=== PATIENT | female | born 1980 | race Caucasian/White ===

== ENCOUNTER 2021-11-23 15:53 | Outpatient (REF) | payer BC, SELFPAY ==
[2021-11-25 12:08] LABS: COVID-19 RT-PCR UVMMC Result Negative (Negative)
== END 2021-11-23 15:54 | disposition home or self-care (01) ==
LOC: LBN 15:53
PROVIDERS: Visit Provider Nurse Practitioner Family
DX: Z20.822 Contact with and (suspected) exposure to COVID-19 (principal)
CPT/HCPCS: U0003